=== PATIENT | male | born 2005 | race Caucasian/White ===

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

== ENCOUNTER 2024-05-31 17:39 | Emergency (ER) | payer SELFPAY | END 2024-05-31 20:26 | disposition left against medical advice (07) | PROVIDERS: Emergency Provider Emergency Medicine; PCP Dentist General Practice | DX: S09.90XA Unspecified injury of head, initial encounter (principal); W10.8XXA Fall (on) (from) other stairs and steps, initial encounter; Y93.9 Activity, unspecified; Y92.9 Unspecified place or not applicable; Y99.9 Unspecified external cause status; Z53.21 Procedure and treatment not carried out due to patient leaving prior to being seen by health care provider ==